=== PATIENT | male | born 1955 | race Caucasian/White ===

== ENCOUNTER → 2016-11-04 | Outpatient (CLI) | payer BC ==
[~2016-11-04] MED LIST: ACET-1256 PO; ASPI-390 PO; FEXO1TAB46 PO; GLUCTAB18 PO; HYDR-5688 PO; LISI-461 PO; MULT-506 PO; MULT-663 PO; ONDA4TAB46 PO; TAMS0.4C38 PO
[2016-11-04 13:18] LABS: BLOOD UREA NITROGEN 23 mg/dl (7-18); BUN/CREATININE RATIO 21.2 (10-20); CALCIUM 8.9 mg/dl (8.5-10.1); CARBON DIOXIDE 32 mmol/L (21-32); CHLORIDE 104 mmol/L (98-107); GLUCOSE 97 mg/dl (70-99); POTASSIUM 4.1 mmol/L (3.5-5.1); SODIUM 140 mmol/L (136-145)
[2016-11-04 13:21] LABS: ESTIMATED AVERAGE GLUCOSE 111 mg/dl; HA1C FLAG Normal (Normal)
[2016-11-04 13:22] LABS: CHOLESTEROL 218 mg/dl (0-200); CHOLESTEROL/HDL RATIO 4.6; HDL CHOLESTEROL 47 mg/dl; TRIGLYCERIDES 187 mg/dl (0-150); VERY LOW DENSITY LIPOPROT CALC 37 mg/dl
--- NOTE | 2016-11-08 11:50 | CODING QUERY MEDICAL NECESSITY ---
SUPPORTING DIAGNOSIS NEEDED Dr. Tea Carrington, A supporting diagnosis is required for the test/procedure performed on this patient in order for us to be reimbursed by the patient's insurance. Please provide a supporting diagnosis for the following test/procedure listed below next to the test name along with your signature. *If there is no additional diagnosis for this patient that would support the following test/procedure please document that below next to the test/procedure. Test(s)/Procedure(s) that require a supporting diagnosis: * [id number] PSA DIAGNOSIS: DATE OF SERVICE: 11/04/16 Provider Signature: Date: Thank you Joshua Tejada [facility] Information Management Once completed, please kindly fax back to [phone] For questions please call [phone]
== END | disposition home or self-care (01) ==
LOC: C.LABSPEC 12:40
PROVIDERS: ATTEND Internal Medicine
DX: R73.9 Hyperglycemia, unspecified (principal); E78.5 Hyperlipidemia, unspecified; I10 Essential (primary) hypertension; R30.0 Dysuria

== ENCOUNTER → 2017-05-12 | Outpatient (CLI) | payer BC ==
[~2017-05-12] MED LIST changes: -HYDR-5688 PO; -ONDA4TAB46 PO
[2017-05-12 14:09] LABS: ALT/SGPT 24 U/L (12-78); BLOOD UREA NITROGEN 19 mg/dl (7-18); BUN/CREATININE RATIO 14.9 (10-20); CALCIUM 8.9 mg/dl (8.5-10.1); CARBON DIOXIDE 27 mmol/L (21-32); CHLORIDE 106 mmol/L (98-107); CHOLESTEROL 205 mg/dl (0-200); CREATININE 1.27 mg/dl (0.60-1.40); GLUCOSE 97 mg/dl (70-99); POTASSIUM 3.8 mmol/L (3.5-5.1); SODIUM 141 mmol/L (136-145); TRIGLYCERIDES 359 mg/dl (0-150); VERY LOW DENSITY LIPOPROT CALC 72 mg/dl
[2017-05-12 14:12] LABS: ALKALINE PHOSPHATASE 92 U/L (45-117); AST/SGOT 18 U/L (15-37); HDL CHOLESTEROL 41 mg/dl
== END | disposition home or self-care (01) ==
LOC: C.LABSPEC 12:34
PROVIDERS: ATTEND Internal Medicine
DX: I10 Essential (primary) hypertension (principal); E78.5 Hyperlipidemia, unspecified

== ENCOUNTER → 2017-10-06 | Outpatient (CLI) | payer OTHER ==
[2017-10-06 18:19] LABS: ALBUMIN 3.5 gm/dl (3.4-5.0); ALT/SGPT 31 U/L (12-78); AST/SGOT 22 U/L (15-37); BLOOD UREA NITROGEN 18 mg/dl (7-18); CALCIUM 8.5 mg/dl (8.5-10.1); CARBON DIOXIDE 24 mmol/L (21-32); CHOLESTEROL 226 mg/dl (0-200); CREATININE 1.13 mg/dl (0.60-1.40); GLUCOSE 96 mg/dl (70-99); POTASSIUM 3.9 mmol/L (3.5-5.1); SODIUM 138 mmol/L (136-145)
[2017-10-06 18:23] LABS: ALKALINE PHOSPHATASE 91 U/L (45-117); LDL CHOLESTEROL (DIRECT) 104 mg/dl
[2017-10-07 08:07] LABS: HEMOGLOBIN A1C 5.5 % (4.5-5.6)
== END | disposition home or self-care (01) ==
LOC: C.LABSPEC 17:17
PROVIDERS: ATTEND Internal Medicine
DX: I10 Essential (primary) hypertension (principal); E78.5 Hyperlipidemia, unspecified; R73.9 Hyperglycemia, unspecified; R30.0 Dysuria

== ENCOUNTER 2018-09-02 16:21 | Inpatient (IN) ==
[2018-09-02 17:05] LABS: Basophils # (auto) 0.02 K/uL (0-0.2); Basophils % (auto) 0.2 %; Eosinophils # (auto) 0.13 K/uL (0-0.5); Eosinophils % (auto) 1.4 %; Hematocrit (blood only) 40.7 % (42-52); Hemoglobin 13.9 g/dL (14.0-18.0); Immature Granulocytes # (auto) 0.02 K/uL (0.00-0.02); Immature Granulocytes % (auto) 0.2 %; Lymphocytes # (auto) 1.13 K/uL (1.2-3.4); Lymphocytes % (auto) 11.8 %; Mean Corpuscular Hgb Conc 34.2 g/dL (32-36); Mean Corpuscular Volume 96.7 fL (80-100); Mean Platelet Volume 10.9 fL (7.4-10.4); Monocytes # (auto) 0.78 K/uL (0.11-0.59); Monocytes % (auto) 8.2 %; Neutrophils # (auto) 7.46 K/uL (1.4-6.5); Neutrophils % (auto) 78.2 %; Platelet Count 203 K/uL (130-400); RDW Coefficient of Variation 13.2 % (11.5-14.5); RDW Standard Deviation 46.7 fL (36.4-46.3); Red Blood Count 4.21 M/uL (4.7-6.1); White Blood Count 9.54 K/uL (4.8-10.8)
--- NOTE | 2018-09-02 17:09 | Emergency Department Note ---
Entered by Evangelista Frank acting as a scribe for Porfirio Shah DO History of Present Illness General Chief complaint: Bleeding Stated complaint: HEMRIOD SURGERY WED,CAN'T STOP BLEEDING Time Seen by Provider: 09/02/18 16:27 Source: patient History of Present Illness Onset (ago): day(s) (last night) Location: buttocks (rectal) Pain Consistency: + other (persistent) Quality: + other (post-operative rectal bleeding) Associated symptoms: + other (takes Xarelto; right flank pain; no bowel movements today) The patient is a 63 year old male who presents to the Emergency Room with complaints of persistent rectal bleeding beginning last night. The patient states that he had hemorrhoid surgery four days ago performed by Dr. Mancera. He reports that he usually takes Xarelto, which he stopped taking seven days ago and started taking again two days ago. He states that there was some occasional spotting from the rectum after his surgery, but last night the pads that he was wearing started to become saturated with blood. He states that he has not had any bowel movements today. He also reports some right flank pain beginning last night. Home Medications Home Medications Medication Instructions Recorded Confirmed Type Move Free Joint Health 1 tab PO DAILY 08/24/18 09/02/18 History calcium citrate-vitamin D3 1 tab PO DAILY 08/24/18 09/02/18 History [Citracal Regular] gemfibrozil 300 tab PO BID 08/24/18 09/02/18 History metoprolol tartrate 37.5 mg PO BID 08/24/18 09/02/18 History multivitamin [Multiple Vitamins] 1 tab PO DAILY 08/24/18 09/02/18 History rizatriptan [Maxalt] 10 mg PO DAILY PRN 09/02/18 09/02/18 History oxycodone-acetaminophen [Percocet] 1 - 2 tab PO Q4H PRN #20 tab 09/03/18 Rx Allergies Allergy/AdvReac Type Severity Reaction Status Date / Time pollen extracts Allergy Unknown SNEEZING, Verified 09/02/18 16:40 RUNNY NOSE Dust Allergy Unknown SNEEZING, Uncoded 09/02/18 16:40 RUNNY NOSE Past Med/Surg History Medical History Afib DIAGNOSED 04/2018- ON XARELTO History of kidney stones Hyperlipidemia Hypertension Surgical History History of arthroscopy of right shoulder History of colonoscopy History of hemorrhoidectomy Family History Other Heart disease Hypertension Social History Preferred Language: Hungarian Beliefs That Will Affect Care: None Current Living Situation: Spouse Feels Safe at Home: Yes Safety Concerns: Feels Safe At This Time Smoking Status: Never smoker Hx Alcohol Use: Yes Hx Substance Use: No Review of Systems See HPI for pertinent positives & negatives. and A total of 10 systems reviewed and were otherwise negative Physical Exam Vital Signs Vital Signs - 24 hr 09/02/18 19:23 09/02/18 21:33 09/03/18 00:22 Temperature 37 C 36.9 C Temperature Source Oral Oral Pulse Rate Pulse Rate [Left Brachial] 96 H Pulse Rate [Left Finger] 75 Pulse Rate [Right Finger] 100 H Pulse Rhythm [Right Finger] Regular Pulse Strength [Right Finger] Normal Respiratory Rate 16 20 Respiratory Effort / Characteristics Non-Labored Spontaneous Respiratory Depth Normal Respiratory Pattern Regular Blood Pressure [Left Arm] 130/85 125/78 Blood Pressure [Right Arm] 139/95 Blood Pressure Mean [Left Arm] 100 93 Blood Pressure Mean [Right Arm] 109 Blood Pressure Position [Left Arm] Lying Blood Pressure Position [Right Arm] Lying Pulse Oximetry 95 95 Oxygen Delivery Method Room Air Room Air 09/03/18 05:11 09/03/18 07:25 09/03/18 07:32 Temperature 37.0 C 36.6 C Temperature Source Oral Oral Pulse Rate 71 Pulse Rate [Left Brachial] Pulse Rate [Left Finger] 79 78 Pulse Rate [Right Finger] Pulse Rhythm [Right Finger] Pulse Strength [Right Finger] Respiratory Rate 20 20 Respiratory Effort / Characteristics Respiratory Depth Respiratory Pattern Blood Pressure [Left Arm] 103/68 120/69 Blood Pressure [Right Arm] Blood Pressure Mean [Left Arm] 79 86 Blood Pressure Mean [Right Arm] Blood Pressure Position [Left Arm] Lying Blood Pressure Position [Right Arm] Pulse Oximetry 95 92 Oxygen Delivery Method Room Air Room Air 09/03/18 11:48 09/03/18 15:00 09/03/18 15:27 Temperature 37.2 C 36.9 C Temperature Source Oral Oral Pulse Rate 81 Pulse Rate [Left Brachial] Pulse Rate [Left Finger] 57 L 79 Pulse Rate [Right Finger] Pulse Rhythm [Right Finger] Pulse Strength [Right Finger] Respiratory Rate 18 18 Respiratory Effort / Characteristics Respiratory Depth Respiratory Pattern Blood Pressure [Left Arm] 110/69 118/72 Blood Pressure [Right Arm] Blood Pressure Mean [Left Arm] 82 87 Blood Pressure Mean [Right Arm] Blood Pressure Position [Left Arm] Lying Lying Blood Pressure Position [Right Arm] Pulse Oximetry 95 92 Oxygen Delivery Method Room Air Room Air 09/03/18 17:16 Temperature 36.9 C Temperature Source Pulse Rate Pulse Rate [Left Brachial] 96 H Pulse Rate [Left Finger] 79 Pulse Rate [Right Finger] 100 H Pulse Rhythm [Right Finger] Pulse Strength [Right Finger] Respiratory Rate 18 Respiratory Effort / Characteristics Respiratory Depth Respiratory Pattern Blood Pressure [Left Arm] 118/72 Blood Pressure [Right Arm] 139/95 Blood Pressure Mean [Left Arm] Blood Pressure Mean [Right Arm] Blood Pressure Position [Left Arm] Blood Pressure Position [Right Arm] Pulse Oximetry 92 Oxygen Delivery Method GENERAL: Patient is awake alert in no acute distress patient is resting comfortably and showing no signs of anxiety EYES: The conjunctivae are clear. The pupils are round and reactive. EARS, NOSE, MOUTH AND THROAT: The nose is without any evidence of any deformity. Mucous membranes are moist tongue is midline NECK: The neck is nontender and supple. RESPIRATORY: Normal respiratory effort is noted there is no evidence of wheezing rhonchi or rales CARDIOVASCULAR: Regular rate and rhythm noted there no murmurs rubs or gallops normal S1 normal S2 GASTROINTESTINAL: The abdomen is soft. Bowel sounds are present in all quadrants. Abdomen is nontender. Rectal exam revealed postoperative site which had fresh clot noted as well as oozing in the anal verge. Patient was very tender in this area. MUSCULOSKELETAL/EXTREMITIES: There is no evidence of gross deformity full range of motion is noted in the hips and shoulders SKIN: There is no obvious evidence of any rash. There are no petechiae, pallor or cyanosis noted. NEUROLOGIC: Patient is awake alert and oriented x3. Course 1635: Past medical records reviewed. The patient was evaluated in room C4, and a complete history and physical examination were performed. 1757: I consulted Dr. Esposito General Surgery. 1800: I updated the patient on current results. 1830: I discussed the patient's case with María Elena Matthews PA-C: [facility] Hospitalist. 1836: I spoke to Dr. Esposito, who is evaluating the patient with a consult to Dr. Dacosta - [facility] Hospitalist. Consultations Consultation #1: I consulted Dr. Esposito General Surgery. Time: 17:57 Consultation #2: I discussed the patient's case with María Elena Matthews PA-C: [facility] Hospitalist. Time: 18:30 Consultation #3: I spoke to Dr. Esposito, who is evaluating the patient with a consult to Dr. Dacosta - [facility] Hospitalist. Time: 18:36 Administered Medications Discontinued Medications Hydrocodone Bitart/Acetaminophen ([place] 5/325) 1 tab PO 3XDQ4 PRN PRN Reason: Pain Stop: 09/16/18 19:33 Last Admin: 09/03/18 05:23 Dose: 1 tab Documented by: [id number] Admin: 09/02/18 22:52 Dose: 1 tab Documented by: [id number] Hydrocodone Bitart/Acetaminophen ([place] 5/325) 2 tab PO 3XDQ4 PRN PRN Reason: Pain Stop: 09/16/18 19:33 Last Admin: 09/03/18 10:37 Dose: 2 tab Documented by: [id number] Hydrocodone Bitart/Acetaminophen ([place] 5/325) 2 tab PO Q4H PRN PRN Reason: Pain Stop: 09/17/18 13:49 Last Admin: 09/03/18 15:46 Dose: 2 tab Documented by: [id number] Gemfibrozil (Lopid) 300 mg PO BID JIMBO Stop: 10/02/18 20:59 Last Admin: 09/03/18 08:10 Dose: 300 mg Documented by: [id number] Admin: 09/02/18 21:32 Dose: Not Given Documented by: [id number] Tranexamic Acid 1,000 mg/ (Sodium Chloride) 110 mls @ 0 mls/hr TOP ONE ONE Stop: 09/03/18 18:00 Last Admin: 09/02/18 17:21 Dose: 110 mls/hr Documented by: [id number] Tranexamic Acid 1,000 mg/ (Sodium Chloride) 110 mls @ 0 mls/hr TOP ONE ONE Stop: 09/03/18 05:16 Last Infusion: 09/03/18 05:39 Dose: 0 mls/hr Documented by: [id number] Admin: 09/03/18 05:32 Dose: 999 mls/hr Documented by: [id number] Metoprolol Tartrate (Lopressor) 37.5 mg PO BID JIMBO Stop: 10/02/18 20:59 Last Admin: 09/03/18 08:10 Dose: 37.5 mg Documented by: [id number] Admin: 09/02/18 21:34 Dose: 37.5 mg Documented by: [id number] Medical Decision Making Differential Diagnosis Differential diagnosis: Etiologies such as esophagitis, variceal bleed, [place] tear, gastritis, peptic ulcer disease, AVM, inflammatory bowel disease, ischemia, diverticulosis, colitis, malignancy, coagulopathy, thrombocytopenia, fissure, hemorrhoid, epistaxis , as well as others were entertained. Medical Records Attestation: I reviewed the patient's medical records. Home Medications Current Medication List: was personally reviewed by me Laboratory Data Attestation: I reviewed the patient's lab results. Result diagrams: 09/03/18 05:56 09/03/18 05:55 Lab Results 09/02/18 09/02/18 09/02/18 Range/Units 16:49 16:49 16:49 WBC 9.54 (4.8-10.8) K/uL RBC 4.21 L (4.7-6.1) M/uL Hgb 13.9 L (14.0-18.0) g/dL POC Hgb (14.0-18.0) g/dl Hct 40.7 L (42-52) % POC Hct (42-52) % MCV 96.7 (80-100) fL MCH 33.0 (25-34) pg MCHC 34.2 (32-36) g/dL RDW Std Deviation 46.7 H (36.4-46.3) fL RDW Coeff of Chiquita 13.2 (11.5-14.5) % Plt Count 203 (130-400) K/uL MPV 10.9 H (7.4-10.4) fL Immature Gran % (Auto) 0.2 % Neut % (Auto) 78.2 % Lymph % (Auto) 11.8 % [place] % (Auto) 8.2 % Eos % (Auto) 1.4 % Baso % (Auto) 0.2 % Immature Gran # (Auto) 0.02 (0.00-0.02) K/uL Neut # (Auto) 7.46 H (1.4-6.5) K/uL Lymph # (Auto) 1.13 L (1.2-3.4) K/uL [place] # (Auto) 0.78 H (0.11-0.59) K/uL Eos # (Auto) 0.13 (0-0.5) K/uL Baso # (Auto) 0.02 (0-0.2) K/uL PT 11.4 (9.0-12.0) Seconds INR 1.1 (0.9-1.1) APTT 31.0 (21.0-31.0) Seconds PTT Ratio 1.1 POC Sodium (135-144) mEq/L Sodium 137 (136-145) mmol/L POC Potassium (3.3-5.0) mEq/L Potassium 3.9 (3.5-5.1) mmol/L POC Chloride (101-112) mEq/L Chloride 103 (98-107) mmol/L Carbon Dioxide 27 (21-32) mmol/L POC Total CO2 (24-31) mEq/l Anion Gap 7.0 (3-11) POC Anion Gap (16-25) mmol/L POC BUN (7-18) mg/dl BUN 19 H (7-18) mg/dl Creatinine 1.30 (0.6-1.4) mg/dl POC Creatinine (0.6-1.3) mg/dl Est Cr Clr Drug Dosing 66.4 ml/min Est GFR ( Amer) 66.8 Est GFR (Non-Af Amer) 57.7 BUN/Creatinine Ratio 14.5 (10-20) Glucose 145 H (70-99) mg/dl POC Glucose (other) (70-99) mg/dl Calcium 8.5 (8.5-10.1) mg/dl POC Ioniz Calcium Niranjan (1.12-1.32) mmol/l Phosphorus (2.5-4.9) mg/dl Total Bilirubin 0.6 (0.2-1) mg/dl AST 13 L (15-37) U/L ALT 15 (12-78) U/L Alkaline Phosphatase 97 (45-117) U/L Total Protein 7.7 (6.4-8.2) gm/dl Albumin 3.1 L (3.4-5.0) gm/dl Globulin 4.6 H (2.5-4.0) gm/dl Albumin/Globulin Ratio 0.7 L (0.9-2) Lipase 84 (73-393) U/L Urine Color Urine Appearance (Clear) Urine pH (4.5-7.5) Ur Specific [place] (1.000-1.030) Urine Protein (Negative) Urine Glucose (UA) (Negative) Urine Ketones (Negative) Urine Blood (Negative) Urine Nitrite (Negative) Urine Bilirubin (Negative) Urine Urobilinogen (Negative) Ur Leukocyte Esterase (Negative) Hepatitis C Ab Screen (Neg) Blood Type Antibody Screen 09/02/18 09/02/18 09/02/18 Range/Units 16:52 16:59 19:59 WBC 9.21 (4.8-10.8) K/uL RBC 4.03 L (4.7-6.1) M/uL Hgb 13.5 L (14.0-18.0) g/dL POC Hgb 13.6 L (14.0-18.0) g/dl Hct 39.5 L (42-52) % POC Hct 40 L (42-52) % MCV 98.0 (80-100) fL MCH 33.5 (25-34) pg MCHC 34.2 (32-36) g/dL RDW Std Deviation 47.8 H (36.4-46.3) fL RDW Coeff of Chiquita 13.2 (11.5-14.5) % Plt Count 194 (130-400) K/uL MPV 10.6 H (7.4-10.4) fL Immature Gran % (Auto) 0.2 % Neut % (Auto) 71.4 % Lymph % (Auto) 18.3 % [place] % (Auto) 7.9 % Eos % (Auto) 2.0 % Baso % (Auto) 0.2 % Immature Gran # (Auto) 0.02 (0.00-0.02) K/uL Neut # (Auto) 6.57 H (1.4-6.5) K/uL Lymph # (Auto) 1.69 (1.2-3.4) K/uL [place] # (Auto) 0.73 H (0.11-0.59) K/uL Eos # (Auto) 0.18 (0-0.5) K/uL Baso # (Auto) 0.02 (0-0.2) K/uL PT (9.0-12.0) Seconds INR (0.9-1.1) APTT (21.0-31.0) Seconds PTT Ratio POC Sodium 137 (135-144) mEq/L Sodium (136-145) mmol/L POC Potassium 4.7 (3.3-5.0) mEq/L Potassium (3.5-5.1) mmol/L POC Chloride 102 (101-112) mEq/L Chloride (98-107) mmol/L Carbon Dioxide (21-32) mmol/L POC Total CO2 27 (24-31) mEq/l Anion Gap (3-11) POC Anion Gap 13.0 L (16-25) mmol/L POC BUN 23 H (7-18) mg/dl BUN (7-18) mg/dl Creatinine (0.6-1.4) mg/dl POC Creatinine 1.1 (0.6-1.3) mg/dl Est Cr Clr Drug Dosing ml/min Est GFR ( Amer) Est GFR (Non-Af Amer) BUN/Creatinine Ratio (10-20) Glucose (70-99) mg/dl POC Glucose (other) 145 H (70-99) mg/dl Calcium (8.5-10.1) mg/dl POC Ioniz Calcium Niranjan 1.06 L (1.12-1.32) mmol/l Phosphorus (2.5-4.9) mg/dl Total Bilirubin (0.2-1) mg/dl AST (15-37) U/L ALT (12-78) U/L Alkaline Phosphatase (45-117) U/L Total Protein (6.4-8.2) gm/dl Albumin (3.4-5.0) gm/dl Globulin (2.5-4.0) gm/dl Albumin/Globulin Ratio (0.9-2) Lipase (73-393) U/L Urine Color Urine Appearance (Clear) Urine pH (4.5-7.5) Ur Specific [place] (1.000-1.030) Urine Protein (Negative) Urine Glucose (UA) (Negative) Urine Ketones (Negative) Urine Blood (Negative) Urine Nitrite (Negative) Urine Bilirubin (Negative) Urine Urobilinogen (Negative) Ur Leukocyte Esterase (Negative) Hepatitis C Ab Screen (Neg) Blood Type O Positive Antibody Screen NEGATIVE 09/02/18 09/03/18 09/03/18 Range/Units 19:59 00:50 05:55 WBC (4.8-10.8) K/uL RBC (4.7-6.1) M/uL Hgb (14.0-18.0) g/dL POC Hgb (14.0-18.0) g/dl Hct (42-52) % POC Hct (42-52) % MCV (80-100) fL MCH (25-34) pg MCHC (32-36) g/dL RDW Std Deviation (36.4-46.3) fL RDW Coeff of Chiquita (11.5-14.5) % Plt Count (130-400) K/uL MPV (7.4-10.4) fL Immature Gran % (Auto) % Neut % (Auto) % Lymph % (Auto) % [place] % (Auto) % Eos % (Auto) % Baso % (Auto) % Immature Gran # (Auto) (0.00-0.02) K/uL Neut # (Auto) (1.4-6.5) K/uL Lymph # (Auto) (1.2-3.4) K/uL [place] # (Auto) (0.11-0.59) K/uL Eos # (Auto) (0-0.5) K/uL Baso # (Auto) (0-0.2) K/uL PT (9.0-12.0) Seconds INR (0.9-1.1) APTT (21.0-31.0) Seconds PTT Ratio POC Sodium (135-144) mEq/L Sodium 138 (136-145) mmol/L POC Potassium (3.3-5.0) mEq/L Potassium 4.0 (3.5-5.1) mmol/L POC Chloride (101-112) mEq/L Chloride 101 (98-107) mmol/L Carbon Dioxide 28 (21-32) mmol/L POC Total CO2 (24-31) mEq/l Anion Gap 9.0 (3-11) POC Anion Gap (16-25) mmol/L POC BUN (7-18) mg/dl BUN 13 (7-18) mg/dl Creatinine 1.06 (0.6-1.4) mg/dl POC Creatinine (0.6-1.3) mg/dl Est Cr Clr Drug Dosing 79.4 ml/min Est GFR ( Amer) 85.5 Est GFR (Non-Af Amer) 73.8 BUN/Creatinine Ratio 12.4 (10-20) Glucose 103 H (70-99) mg/dl POC Glucose (other) (70-99) mg/dl Calcium 8.8 (8.5-10.1) mg/dl POC Ioniz Calcium Niranjan (1.12-1.32) mmol/l Phosphorus 3.6 (2.5-4.9) mg/dl Total Bilirubin 0.6 (0.2-1) mg/dl AST 14 L (15-37) U/L ALT 15 (12-78) U/L Alkaline Phosphatase 89 (45-117) U/L Total Protein 7.1 (6.4-8.2) gm/dl Albumin 2.8 L (3.4-5.0) gm/dl Globulin 4.3 H (2.5-4.0) gm/dl Albumin/Globulin Ratio 0.6 L (0.9-2) Lipase (73-393) U/L Urine Color Yellow Urine Appearance Clear (Clear) Urine pH 5.0 (4.5-7.5) Ur Specific [place] 1.022 (1.000-1.030) Urine Protein Negative (Negative) Urine Glucose (UA) Negative (Negative) Urine Ketones Negative (Negative) Urine Blood Negative (Negative) Urine Nitrite Negative (Negative) Urine Bilirubin Negative (Negative) Urine Urobilinogen Negative (Negative) Ur Leukocyte Esterase Negative (Negative) Hepatitis C Ab Screen Neg (Neg) Blood Type Antibody Screen 09/03/18 Range/Units 05:56 WBC 9.34 (4.8-10.8) K/uL RBC 3.90 L (4.7-6.1) M/uL Hgb 12.8 L (14.0-18.0) g/dL POC Hgb (14.0-18.0) g/dl Hct 38.4 L (42-52) % POC Hct (42-52) % MCV 98.5 (80-100) fL MCH 32.8 (25-34) pg MCHC 33.3 (32-36) g/dL RDW Std Deviation 47.6 H (36.4-46.3) fL RDW Coeff of Chiquita 13.3 (11.5-14.5) % Plt Count 199 (130-400) K/uL MPV 11.0 H (7.4-10.4) fL Immature Gran % (Auto) % Neut % (Auto) % Lymph % (Auto) % [place] % (Auto) % Eos % (Auto) % Baso % (Auto) % Immature Gran # (Auto) (0.00-0.02) K/uL Neut # (Auto) (1.4-6.5) K/uL Lymph # (Auto) (1.2-3.4) K/uL [place] # (Auto) (0.11-0.59) K/uL Eos # (Auto) (0-0.5) K/uL Baso # (Auto) (0-0.2) K/uL PT (9.0-12.0) Seconds INR (0.9-1.1) APTT (21.0-31.0) Seconds PTT Ratio POC Sodium (135-144) mEq/L Sodium (136-145) mmol/L POC Potassium (3.3-5.0) mEq/L Potassium (3.5-5.1) mmol/L POC Chloride (101-112) mEq/L Chloride (98-107) mmol/L Carbon Dioxide (21-32) mmol/L POC Total CO2 (24-31) mEq/l Anion Gap (3-11) POC Anion Gap (16-25) mmol/L POC BUN (7-18) mg/dl BUN (7-18) mg/dl Creatinine (0.6-1.4) mg/dl POC Creatinine (0.6-1.3) mg/dl Est Cr Clr Drug Dosing ml/min Est GFR ( Amer) Est GFR (Non-Af Amer) BUN/Creatinine Ratio (10-20) Glucose (70-99) mg/dl POC Glucose (other) (70-99) mg/dl Calcium (8.5-10.1) mg/dl POC Ioniz Calcium Niranjan (1.12-1.32) mmol/l Phosphorus (2.5-4.9) mg/dl Total Bilirubin (0.2-1) mg/dl AST (15-37) U/L ALT (12-78) U/L Alkaline Phosphatase (45-117) U/L Total Protein (6.4-8.2) gm/dl Albumin (3.4-5.0) gm/dl Globulin (2.5-4.0) gm/dl Albumin/Globulin Ratio (0.9-2) Lipase (73-393) U/L Urine Color Urine Appearance (Clear) Urine pH (4.5-7.5) Ur Specific [place] (1.000-1.030) Urine Protein (Negative) Urine Glucose (UA) (Negative) Urine Ketones (Negative) Urine Blood (Negative) Urine Nitrite (Negative) Urine Bilirubin (Negative) Urine Urobilinogen (Negative) Ur Leukocyte Esterase (Negative) Hepatitis C Ab Screen (Neg) Blood Type Antibody Screen Blood Pressure Blood Pressure Findings: Normal blood pressure Blood Pressure Disposition: did not require urgent referral MDM Narrative The patient is a 63-year-old male who presented to the emergency department for an evaluation of rectal bleeding. The patient had recent surgery and restarted his blood thinners 2 days after the surgery. He presents today with significant bleeding in the postoperative site where he had multiple hemorrhoids removed. The patient was treated with pressure directly as well as TXA topically to the area of bleeding. This seems to have improved the patient's bleeding significantly. I discussed the patient's laboratory studies with him. I also discussed his case with the on-call general surgeon as well as the on-call [facility] hospitalist group. They have agreed to evaluate the patient in the emergency department for further management and disposition. Given the patient's use of blood thinners I feel that he may be at risk for worsening bleeding. Impression & Plan Post-op bleeding, Current use of longwall foreman anticoagulation Discharge Plan Visit Data *Final* Discharge Date/Time: 09/02/18 19:17 Chief Complaint: Bleeding Stated Complaint: HEMRIOD SURGERY WED,CAN'T STOP BLEEDING ED Provider: Porfirio Shah Discharge Problem: Post-op bleeding, Current use of longwall foreman anticoagulation Patient Disposition: Admitted As Inpatient Discharge Instructions Interventions: ED Discharge Assessment Last Done: 09/02/18 19:17 Discharge Problem: Post-op bleeding Qualifiers: Surgical complication system/body Area: digestive system Procedure type: digestive system Qualified Code(s): K91.840 - Postprocedural hemorrhage of a digestive system organ or structure following a digestive system procedure The scribe's documentation has been prepared under my direction and personally reviewed by me in its entirety. I confirm that the note above accurately reflects all work, treatment, procedures, and medical decision making performed by me.
[2018-09-02 17:12] LABS: iSTAT Creatinine 1.1 mg/dl (0.6-1.3); iSTAT Hemoglobin 13.6 g/dl (14.0-18.0); iSTAT Ionized Calcium 1.06 mmol/l (1.12-1.32); iSTAT Potassium 4.7 mEq/L (3.3-5.0)
[2018-09-02 17:22] LABS: Albumin Level 3.1 gm/dl (3.4-5.0); BUN Creatinine Ratio 14.5 (10-20); Calcium 8.5 mg/dl (8.5-10.1); Creatinine Clr Calc Pharmacy 66.4 ml/min; Est GFR (African American) 66.8; Est GFR (Non-African American) 57.7; Potassium 3.9 mmol/L (3.5-5.1)
[2018-09-02 17:24] LABS: Albumin Globulin Ratio 0.7 (0.9-2); Bilirubin,Total 0.6 mg/dl (0.2-1); Globulin 4.6 gm/dl (2.5-4.0); Total Protein 7.7 gm/dl (6.4-8.2)
[2018-09-02 17:30] LABS: INR 1.1 (0.9-1.1); Partial Thromboplastin Ratio 1.1; Prothrombin Time 11.4 Seconds (9.0-12.0)
--- NOTE | 2018-09-02 18:57 | History & Physical Report ---
Date of Service September 02, 2018 Assessment & Plan (1) Post-op bleeding: adm to M/S tele with h/o bleeding from hemorrhoidectomy site seems to be stopped- hold Xarelto- may need other anticoagulant for 1-2 weeks,then back to Xarelto. OR if has significant bleeding ask med team to follow Procedure type: digestive system Surgical complication system/body Area: digestive system Qualified Code(s): K91.840 - Postprocedural hemorrhage of a digestive system organ or structure following a digestive system procedure History of Present Illness Primary Care Provider: Jacob Singh MD recent hemorrhoidectomy- 4 days ago- began Xarelto 2 days ago last dose last pm- began with rectal bleeding this am [facility]- Dr Shah placed Transaxamic pad he saw clot- no active bleeding Dr Small told me Xarelto should be out of his system (mostly) h/o afib Allergies Allergy/AdvReac Type Severity Reaction Status Date / Time pollen extracts Allergy Unknown SNEEZING, Verified 09/02/18 16:40 RUNNY NOSE Dust Allergy Unknown SNEEZING, Uncoded 09/02/18 16:40 RUNNY NOSE Home Medications Home Medications Medication Instructions Recorded Confirmed Type Move Free Joint Health 1 tab PO DAILY 08/24/18 09/02/18 History Xarelto 20 mg PO PM 08/24/18 09/02/18 History calcium citrate-vitamin D3 1 tab PO DAILY 08/24/18 09/02/18 History [Citracal Regular] gemfibrozil 300 tab PO BID 08/24/18 09/02/18 History metoprolol tartrate 37.5 mg PO BID 08/24/18 09/02/18 History multivitamin [Multiple Vitamins] 1 tab PO DAILY 08/24/18 09/02/18 History rizatriptan [Maxalt] 10 mg PO DAILY PRN 09/02/18 09/02/18 History Past Med/Surg History Medical History Afib DIAGNOSED 04/2018- ON XARELTO History of kidney stones Hyperlipidemia Hypertension Surgical History History of arthroscopy of right shoulder History of colonoscopy History of hemorrhoidectomy Family History Other Heart disease Hypertension Social History Feels Safe at Home: Yes Smoking Status: Never smoker Physical Exam Vital Signs (Past 24 Hours): Last Vital Signs Temp 36.6 C 09/02/18 16:23 Pulse 102 H 09/02/18 17:30 Resp 14 09/02/18 17:30 BP 114/64 09/02/18 17:30 Pulse Ox 94 09/02/18 17:30 currently no active bleeding- min blood on pad has post ext hemorrhoidsite with old dark clot Constitutional: well developed; no acute distress Respiratory: normal respiratory effort; no respiratory distress Cardiovascular: afib Skin: no rashes, warm and dry Psychiatric: Orientation: alert Results & Data Medications Administered Tranexamic Acid 1,000 mg/ (Sodium Chloride) 110 mls @ 0 mls/hr TOP ONE ONE Stop: 09/03/18 18:00 Last Admin: 09/02/18 17:21 Dose: 110 mls/hr Documented by: [id number]
[2018-09-02] MEDS ORDERED: HYDROCODONE/ACETAMOPHEN 5/325MG TAB PO PRN (19:34)
[2018-09-02] MEDS ORDERED: PROMETHAZINE HCL 12.5 MG in SODIUM CHLORIDE 0.9% 50 ML IV PRN (19:34)
[2018-09-02] MEDS ORDERED: ONDANSETRON INJ 2 MG/ML 2 ML VIAL IV PRN (19:34)
[2018-09-02] MEDS ORDERED: RIZATRIPTAN BENZOATE 10 MG TAB PO PRN (19:34)
[2018-09-02 20:10] LABS: Basophils # (auto) 0.02 K/uL (0-0.2); Basophils % (auto) 0.2 %; Eosinophils # (auto) 0.18 K/uL (0-0.5); Hematocrit (blood only) 39.5 % (42-52); Hemoglobin 13.5 g/dL (14.0-18.0); Immature Granulocytes # (auto) 0.02 K/uL (0.00-0.02); Immature Granulocytes % (auto) 0.2 %; Lymphocytes # (auto) 1.69 K/uL (1.2-3.4); Lymphocytes % (auto) 18.3 %; Mean Platelet Volume 10.6 fL (7.4-10.4); Monocytes # (auto) 0.73 K/uL (0.11-0.59); Monocytes % (auto) 7.9 %; Neutrophils # (auto) 6.57 K/uL (1.4-6.5); Neutrophils % (auto) 71.4 %; Platelet Count 194 K/uL (130-400); RDW Coefficient of Variation 13.2 % (11.5-14.5); RDW Standard Deviation 47.8 fL (36.4-46.3); Red Blood Count 4.03 M/uL (4.7-6.1); White Blood Count 9.21 K/uL (4.8-10.8)
[2018-09-02 20:12] LABS: Mean Corpuscular Hgb Conc 34.2 g/dL (32-36)
--- NOTE | 2018-09-02 20:56 | Consultation ---
Date of Consultation September 02, 2018 Assessment & Plan (1) Post-op bleedin63 y/o M Hx chronic AF, HLD, migraines. Pt underwent hemorrhoidectomy 08/29. He normally takes Xarelto and reintroduced the medication a day earlier. He developed a lower rectal bleeding after doing so and presented for evaluation. He was admitted by the surgical service who packed the area and apparently achieved homeostasis. He has some rectal pain which is mild and otherwise does not describe any complaints. 1) BRBPR - attended to by surgery. Area packed for homeostasis. Pt will be observed overnight. Analgesics provided. IVF, clear liquids. 2) AF - cont Metoprolol - Xarelto should be held for a few more days 3) HLD - can hold Gemfibrozil until diet is reintroduced Total time for this consult including review of labs, meds, records, surgery note - discussion with pt and admitting ER attending - 33 min Present on Admission?: Yes History of Present Illness Reason for Consultation: Rectal bleeding, AF - Xarelto use Requesting Physician: Vaibhav Attending Physician: Javed Esposito MD, [facility] History of Present Illness 63 y/o M Hx chronic AF, HLD, migraines. Pt underwent hemorrhoidectomy 08/29. He normally takes Xarelto and reintroduced the medication a day earlier. He developed a lower rectal bleeding after doing so and presented for evaluation. He was admitted by the surgical service who packed the area and apparently ac hieved homeostasis. He has some rectal pain which is mild and otherwise does not describe any complaints. PMH: 1) AF - chronic - Xarelto 2) Hemorrhoids 3) Migraine headaches 4) HLD Surgical: Hemorrhoidectomy 08/29/17 Social: Drinks a six pack weekly Family: Father with AF Allergies Allergy/AdvReac Type Severity Reaction Status Date / Time pollen extracts Allergy Unknown SNEEZING, Verified 09/02/18 16:40 RUNNY NOSE Dust Allergy Unknown SNEEZING, Uncoded 09/02/18 16:40 RUNNY NOSE Home Medications Home Medications Medication Instructions Recorded Confirmed Type Move Free Joint Health 1 tab PO DAILY 08/24/18 09/02/18 History Xarelto 20 mg PO PM 08/24/18 09/02/18 History calcium citrate-vitamin D3 1 tab PO DAILY 08/24/18 09/02/18 History [Citracal Regular] gemfibrozil 300 tab PO BID 08/24/18 09/02/18 History metoprolol tartrate 37.5 mg PO BID 08/24/18 09/02/18 History multivitamin [Multiple Vitamins] 1 tab PO DAILY 08/24/18 09/02/18 History rizatriptan [Maxalt] 10 mg PO DAILY PRN 09/02/18 09/02/18 History Patient History Medical History Afib DIAGNOSED 04/2018- ON XARELTO History of kidney stones Hyperlipidemia Hypertension Surgical History History of arthroscopy of right shoulder History of colonoscopy History of hemorrhoidectomy Family History Other Heart disease Hypertension Social History Preferred Language: Malaysian Communication Ability: Effective 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 Beliefs That Will Affect Care: None Current Living Situation: Spouse Feels Safe at Home: Yes Safety Concerns: Feels Safe At This Time Smoking Status: Never smoker Hx Alcohol Use: Yes Hx Substance Use: No Review of Systems Gen: Denies fevers, night sweats, rigors, fatigue, malaise, weight loss/gain ENT: Denies congestion, throat pain, hearing loss Eyes: Denies acute visual changes CV: Denies CP, palpitations Pulmonary: Denies SOB, cough, wheezing GI: Denies N/V, diarrhea, constipation + rectal pain and BRBPR Neuro: Denies acute or unilateral weakness, acute gait impairment, headache or acute visual changes Musculoskeletal: Denies joint pain, inflammation Endocrine: Denies polydipsia, polyuria Skin: Denies acute rashes or ulcers Physical Exam Vital Signs (Past 24 Hours): Last Vital Signs Temp 37 C 09/02/18 19:23 Pulse 100 H 09/02/18 19:23 Resp 16 09/02/18 19:23 BP 139/95 09/02/18 19:23 Pulse Ox 95 09/02/18 19:23 Physical Exam: General: AAO x 3, no distress ENT: No erythema or exudates, no thrush Eyes: MIKAELA, EOMI Head and neck: Normocephalic, atraumatic, No JVD, neck is supple. Chest/heart: Nontender, S1,2, irr, no murmurs, no gallops Lungs: CTAB, no wheezing or crackles Abdomen: Nontender, nondistended, BS+ Neuro: AAO x 3, speech is clear, no unilateral weakness or loss of sensation, coordination intact Musculoskeletal: No joint inflammation, muscle tenderness, FROM Skin: No acute rashes or ulcers Extremities: No clubbing, cyanosis, edema (1) Post-op bleeding Procedure type: digestive system Surgical complication system/body Area: digestive system Qualified Code(s): K91.840 - Postprocedural hemorrhage of a digestive system organ or structure following a digestive system procedure
[2018-09-02] MEDS: GEMFIBROZIL 600 MG TAB PO SCH (21:32)
[2018-09-02] MEDS: METOPROLOL TARTRATE 25 MG TAB PO SCH (21:34)
[2018-09-02] MEDS: HYDROCODONE/ACETAMOPHEN 5/325MG TAB PO PRN (22:52)
[2018-09-03 01:04] LABS: Appearance Urine Clear (Clear); Bilirubin Urine Negative (Negative); Blood Urine Negative (Negative); Color Urine Yellow; Glucose Urine UA Negative (Negative); Ketones Urine Negative (Negative); Leukocyte Esterase Urine Negative (Negative); Nitrite Urine Negative (Negative); Protein Urine Negative (Negative); Specific Gravity Urine 1.022 (1.000-1.030); Urobilinogen Urine Negative (Negative)
[2018-09-03] MEDS ORDERED: TRANEXAMIC ACID 1,000 MG in 0.9 % SODIUM CHLORIDE 100 ML TOP ONE ×2 (05:15→16:42)
[2018-09-03] MEDS: HYDROCODONE/ACETAMOPHEN 5/325MG TAB PO PRN (05:23)
--- NOTE | 2018-09-03 06:08 | Progress Note ---
Date of Service September 03, 2018 Assessment & Plan (1) Post-op bleeding: monitor for bleeding, adv diet discuss with Dr Mancera and med team plan for anticoagulant Procedure type: digestive system Surgical complication system/body Area: digestive system Qualified Code(s): K91.840 - Postprocedural hemorrhage of a digestive system organ or structure following a digestive system procedure Subjective no bleeding overnight feeling better Physical Exam Vital Signs (Past 24 Hours): Last Vital Signs Temp 37.0 C 09/03/18 05:11 Pulse 79 09/03/18 05:11 Resp 20 09/03/18 05:11 BP 103/68 09/03/18 05:11 Pulse Ox 95 09/03/18 05:11 no active bleeding from hemorrhoidectomy sites
[2018-09-03 06:37] LABS: Albumin Level 2.8 gm/dl (3.4-5.0); BUN Creatinine Ratio 12.4 (10-20); Calcium 8.8 mg/dl (8.5-10.1); Creatinine Clr Calc Pharmacy 79.4 ml/min; Est GFR (African American) 85.5; Est GFR (Non-African American) 73.8
[2018-09-03 06:40] LABS: Albumin Globulin Ratio 0.6 (0.9-2); Bilirubin,Total 0.6 mg/dl (0.2-1); Globulin 4.3 gm/dl (2.5-4.0); Phosphorus 3.6 mg/dl (2.5-4.9); Total Protein 7.1 gm/dl (6.4-8.2)
[2018-09-03] MEDS: METOPROLOL TARTRATE 25 MG TAB PO SCH (08:10)
[2018-09-03] MEDS: GEMFIBROZIL 600 MG TAB PO SCH (08:10)
[2018-09-03 09:00] LABS: Hematocrit (blood only) 38.4 % (42-52); Hemoglobin 12.8 g/dL (14.0-18.0); Mean Corpuscular Hgb Conc 33.3 g/dL (32-36); Mean Corpuscular Volume 98.5 fL (80-100); Platelet Count 199 K/uL (130-400); RDW Coefficient of Variation 13.3 % (11.5-14.5); RDW Standard Deviation 47.6 fL (36.4-46.3); White Blood Count 9.34 K/uL (4.8-10.8)
[2018-09-03] MEDS ORDERED: HYDROCODONE/ACETAMOPHEN 5/325MG TAB PO PRN (13:50)
--- NOTE | 2018-09-03 14:14 | Hospitalist Progress Note ---
Date of Service September 03, 2018 Assessment & Plan (1) Post-op bleeding: - S/p hemorrhoidectomy on 08/29, resumed Xarelto on 08/31/18. - Pt. developed post op rectal bleeding on 09/02/18, was admitted for hemostasis. - Bleeding now improved, has some noted with BMs. - Discussed with Dr. Mancera, will plan to hold Xarelto until follow up with surgery in outpatient clinic. - Linch as needed for rectal pain. (2) Paroxysmal atrial fibrillation: - H/o PAF initially diagnosed ~May 2018; had Chads-Vasc score 1 at that time but elected to use anticoagulation therapy. - Resumed Xarelto on 08/31/18, now on hold due to post op bleeding. - In A. Fib at admission then converted to NSR; now converted back to A. fib rate controlled this morning. - Continue Metoprolol as prescribed. - Hold Xarelto until f/u with outpatient surgeon as noted above. - Has f/u with cardiology scheduled on 09/14/18. (3) Hyperlipidemia: - Continue Gemfibrozil as prescribed. (4) Anemia: - Hemoglobin decreased to 12.8, likely related to post op bleeding. (5) DVT prophylaxis: - Holding due to acute rectal bleeding. Dispo: Pt is medically stable for discharge to home pending approval by Dr. Mancera; will need to hold anticoagulation and f/u with surgery. Also has appt with cardiology in near future. Supervising Physician Co-Signing Physician Notes Attending Attestation - Chart reviewed in detail, and care plan d/w YUNIOR Cade. I agree w/ the doll components of her documentation. 63yo male with PAF on xarelto who recently had hemorrhoidectomy but developed post-op bleeding from the rectum, likely exacerbated by his anticoagulation. Xarelto NOW ON HOLD. H/H stable and vitals stable. Gen surg to d/c home today - agree with such, he is medically stable and appropriate for discharge. Agree with HOLDING THE XARELTO until seen by gen surg in clinic. Khurram Villanueva MD Subjective Pt is doing well today. Is having mild bleeding with BMs but no significant bleeding noted throughout day. Discussed case with Dr. Mancera, plan to hold Xarelto until follow up in outpatient clinic. Review of Systems All systems reviewed & are unremarkable except as noted in HPI & below Constitutional: no fever, no chills, no fatigue and no weakness Respiratory: no cough and no dyspnea Cardiovascular: no chest pain, no palpitations and no edema Gastrointestinal: no abdominal pain, no nausea, no vomiting, no constipation and no diarrhea/loose stools Genitourinary (Male): no difficulty urinating and no hematuria Musculoskeletal: no joint pain Allergy / Immunological: no rash Physical Exam Vital Signs (Past 24 Hours): Last Vital Signs Temp 37.2 C 09/03/18 11:48 Pulse 57 L 09/03/18 11:48 Resp 18 09/03/18 11:48 BP 110/69 09/03/18 11:48 Pulse Ox 95 09/03/18 11:48 Physical Exam: General: Resting comfortably in no apparent distress; A&OX3 HEENT: NC/AT; PERRLA with EOMI; [employer] conjunctiva, MMM. Neck: Supple and nontender Cardiac: irregular Lungs: CTA bilaterally Abdomen: Bowel normoactive X 4; Nontender to palpation Rectal: Did not complete on exam. Extremities: Warm. No edema present Neuro: No focal weakness Skin: No rash Results & Data Laboratory Results 09/03/18 09/03/18 09/03/18 Range/Units 05:56 05:55 00:50 WBC 9.34 (4.8-10.8) K/uL RBC 3.90 L (4.7-6.1) M/uL Hgb 12.8 L (14.0-18.0) g/dL POC Hgb (14.0-18.0) g/dl Hct 38.4 L (42-52) % POC Hct (42-52) % MCV 98.5 (80-100) fL MCH 32.8 (25-34) pg MCHC 33.3 (32-36) g/dL RDW Std Deviation 47.6 H (36.4-46.3) fL RDW Coeff of Chiquita 13.3 (11.5-14.5) % Plt Count 199 (130-400) K/uL MPV 11.0 H (7.4-10.4) fL Immature Gran % (Auto) % Neut % (Auto) % Lymph % (Auto) % [place] % (Auto) % Eos % (Auto) % Baso % (Auto) % Immature Gran # (Auto) (0.00-0.02) K/uL Neut # (Auto) (1.4-6.5) K/uL Lymph # (Auto) (1.2-3.4) K/uL [place] # (Auto) (0.11-0.59) K/uL Eos # (Auto) (0-0.5) K/uL Baso # (Auto) (0-0.2) K/uL PT (9.0-12.0) Seconds INR (0.9-1.1) APTT (21.0-31.0) Seconds PTT Ratio POC Sodium (135-144) mEq/L Sodium 138 (136-145) mmol/L POC Potassium (3.3-5.0) mEq/L Potassium 4.0 (3.5-5.1) mmol/L POC Chloride (101-112) mEq/L Chloride 101 (98-107) mmol/L Carbon Dioxide 28 (21-32) mmol/L POC Total CO2 (24-31) mEq/l Anion Gap 9.0 (3-11) POC Anion Gap (16-25) mmol/L POC BUN (7-18) mg/dl BUN 13 (7-18) mg/dl Creatinine 1.06 (0.6-1.4) mg/dl POC Creatinine (0.6-1.3) mg/dl Est Cr Clr Drug Dosing 79.4 ml/min Est GFR ( Amer) 85.5 Est GFR (Non-Af Amer) 73.8 BUN/Creatinine Ratio 12.4 (10-20) Glucose 103 H (70-99) mg/dl POC Glucose (other) (70-99) mg/dl Calcium 8.8 (8.5-10.1) mg/dl POC Ioniz Calcium Niranjan (1.12-1.32) mmol/l Phosphorus 3.6 (2.5-4.9) mg/dl Total Bilirubin 0.6 (0.2-1) mg/dl AST 14 L (15-37) U/L ALT 15 (12-78) U/L Alkaline Phosphatase 89 (45-117) U/L Total Protein 7.1 (6.4-8.2) gm/dl Albumin 2.8 L (3.4-5.0) gm/dl Globulin 4.3 H (2.5-4.0) gm/dl Albumin/Globulin Ratio 0.6 L (0.9-2) Lipase (73-393) U/L Urine Color Yellow Urine Appearance Clear (Clear) Urine pH 5.0 (4.5-7.5) Ur Specific [place] 1.022 (1.000-1.030) Urine Protein Negative (Negative) Urine Glucose (UA) Negative (Negative) Urine Ketones Negative (Negative) Urine Blood Negative (Negative) Urine Nitrite Negative (Negative) Urine Bilirubin Negative (Negative) Urine Urobilinogen Negative (Negative) Ur Leukocyte Esterase Negative (Negative) Hepatitis C Ab Screen (Neg) Blood Type Antibody Screen 09/02/18 09/02/18 09/02/18 Range/Units 19:59 19:59 16:59 WBC 9.21 (4.8-10.8) K/uL RBC 4.03 L (4.7-6.1) M/uL Hgb 13.5 L (14.0-18.0) g/dL POC Hgb 13.6 L (14.0-18.0) g/dl Hct 39.5 L (42-52) % POC Hct 40 L (42-52) % MCV 98.0 (80-100) fL MCH 33.5 (25-34) pg MCHC 34.2 (32-36) g/dL RDW Std Deviation 47.8 H (36.4-46.3) fL RDW Coeff of Chiquita 13.2 (11.5-14.5) % Plt Count 194 (130-400) K/uL MPV 10.6 H (7.4-10.4) fL Immature Gran % (Auto) 0.2 % Neut % (Auto) 71.4 % Lymph % (Auto) 18.3 % [place] % (Auto) 7.9 % Eos % (Auto) 2.0 % Baso % (Auto) 0.2 % Immature Gran # (Auto) 0.02 (0.00-0.02) K/uL Neut # (Auto) 6.57 H (1.4-6.5) K/uL Lymph # (Auto) 1.69 (1.2-3.4) K/uL [place] # (Auto) 0.73 H (0.11-0.59) K/uL Eos # (Auto) 0.18 (0-0.5) K/uL Baso # (Auto) 0.02 (0-0.2) K/uL PT (9.0-12.0) Seconds INR (0.9-1.1) APTT (21.0-31.0) Seconds PTT Ratio POC Sodium 137 (135-144) mEq/L Sodium (136-145) mmol/L POC Potassium 4.7 (3.3-5.0) mEq/L Potassium (3.5-5.1) mmol/L POC Chloride 102 (101-112) mEq/L Chloride (98-107) mmol/L Carbon Dioxide (21-32) mmol/L POC Total CO2 27 (24-31) mEq/l Anion Gap (3-11) POC Anion Gap 13.0 L (16-25) mmol/L POC BUN 23 H (7-18) mg/dl BUN (7-18) mg/dl Creatinine (0.6-1.4) mg/dl POC Creatinine 1.1 (0.6-1.3) mg/dl Est Cr Clr Drug Dosing ml/min Est GFR ( Amer) Est GFR (Non-Af Amer) BUN/Creatinine Ratio (10-20) Glucose (70-99) mg/dl POC Glucose (other) 145 H (70-99) mg/dl Calcium (8.5-10.1) mg/dl POC Ioniz Calcium Niranjan 1.06 L (1.12-1.32) mmol/l Phosphorus (2.5-4.9) mg/dl Total Bilirubin (0.2-1) mg/dl AST (15-37) U/L ALT (12-78) U/L Alkaline Phosphatase (45-117) U/L Total Protein (6.4-8.2) gm/dl Albumin (3.4-5.0) gm/dl Globulin (2.5-4.0) gm/dl Albumin/Globulin Ratio (0.9-2) Lipase (73-393) U/L Urine Color Urine Appearance (Clear) Urine pH (4.5-7.5) Ur Specific [place] (1.000-1.030) Urine Protein (Negative) Urine Glucose (UA) (Negative) Urine Ketones (Negative) Urine Blood (Negative) Urine Nitrite (Negative) Urine Bilirubin (Negative) Urine Urobilinogen (Negative) Ur Leukocyte Esterase (Negative) Hepatitis C Ab Screen Neg (Neg) Blood Type Antibody Screen 09/02/18 09/02/18 09/02/18 Range/Units 16:52 16:49 16:49 WBC (4.8-10.8) K/uL RBC (4.7-6.1) M/uL Hgb (14.0-18.0) g/dL POC Hgb (14.0-18.0) g/dl Hct (42-52) % POC Hct (42-52) % MCV (80-100) fL MCH (25-34) pg MCHC (32-36) g/dL RDW Std Deviation (36.4-46.3) fL RDW Coeff of Chiquita (11.5-14.5) % Plt Count (130-400) K/uL MPV (7.4-10.4) fL Immature Gran % (Auto) % Neut % (Auto) % Lymph % (Auto) % [place] % (Auto) % Eos % (Auto) % Baso % (Auto) % Immature Gran # (Auto) (0.00-0.02) K/uL Neut # (Auto) (1.4-6.5) K/uL Lymph # (Auto) (1.2-3.4) K/uL [place] # (Auto) (0.11-0.59) K/uL Eos # (Auto) (0-0.5) K/uL Baso # (Auto) (0-0.2) K/uL PT 11.4 (9.0-12.0) Seconds INR 1.1 (0.9-1.1) APTT 31.0 (21.0-31.0) Seconds PTT Ratio 1.1 POC Sodium (135-144) mEq/L Sodium 137 (136-145) mmol/L POC Potassium (3.3-5.0) mEq/L Potassium 3.9 (3.5-5.1) mmol/L POC Chloride (101-112) mEq/L Chloride 103 (98-107) mmol/L Carbon Dioxide 27 (21-32) mmol/L POC Total CO2 (24-31) mEq/l Anion Gap 7.0 (3-11) POC Anion Gap (16-25) mmol/L POC BUN (7-18) mg/dl BUN 19 H (7-18) mg/dl Creatinine 1.30 (0.6-1.4) mg/dl POC Creatinine (0.6-1.3) mg/dl Est Cr Clr Drug Dosing 66.4 ml/min Est GFR ( Amer) 66.8 Est GFR (Non-Af Amer) 57.7 BUN/Creatinine Ratio 14.5 (10-20) Glucose 145 H (70-99) mg/dl POC Glucose (other) (70-99) mg/dl Calcium 8.5 (8.5-10.1) mg/dl POC Ioniz Calcium Niranjan (1.12-1.32) mmol/l Phosphorus (2.5-4.9) mg/dl Total Bilirubin 0.6 (0.2-1) mg/dl AST 13 L (15-37) U/L ALT 15 (12-78) U/L Alkaline Phosphatase 97 (45-117) U/L Total Protein 7.7 (6.4-8.2) gm/dl Albumin 3.1 L (3.4-5.0) gm/dl Globulin 4.6 H (2.5-4.0) gm/dl Albumin/Globulin Ratio 0.7 L (0.9-2) Lipase 84 (73-393) U/L Urine Color Urine Appearance (Clear) Urine pH (4.5-7.5) Ur Specific [place] (1.000-1.030) Urine Protein (Negative) Urine Glucose (UA) (Negative) Urine Ketones (Negative) Urine Blood (Negative) Urine Nitrite (Negative) Urine Bilirubin (Negative) Urine Urobilinogen (Negative) Ur Leukocyte Esterase (Negative) Hepatitis C Ab Screen (Neg) Blood Type O Positive Antibody Screen NEGATIVE 09/02/18 Range/Units 16:49 WBC 9.54 (4.8-10.8) K/uL RBC 4.21 L (4.7-6.1) M/uL Hgb 13.9 L (14.0-18.0) g/dL POC Hgb (14.0-18.0) g/dl Hct 40.7 L (42-52) % POC Hct (42-52) % MCV 96.7 (80-100) fL MCH 33.0 (25-34) pg MCHC 34.2 (32-36) g/dL RDW Std Deviation 46.7 H (36.4-46.3) fL RDW Coeff of Chiquita 13.2 (11.5-14.5) % Plt Count 203 (130-400) K/uL MPV 10.9 H (7.4-10.4) fL Immature Gran % (Auto) 0.2 % Neut % (Auto) 78.2 % Lymph % (Auto) 11.8 % [place] % (Auto) 8.2 % Eos % (Auto) 1.4 % Baso % (Auto) 0.2 % Immature Gran # (Auto) 0.02 (0.00-0.02) K/uL Neut # (Auto) 7.46 H (1.4-6.5) K/uL Lymph # (Auto) 1.13 L (1.2-3.4) K/uL [place] # (Auto) 0.78 H (0.11-0.59) K/uL Eos # (Auto) 0.13 (0-0.5) K/uL Baso # (Auto) 0.02 (0-0.2) K/uL PT (9.0-12.0) Seconds INR (0.9-1.1) APTT (21.0-31.0) Seconds PTT Ratio POC Sodium (135-144) mEq/L Sodium (136-145) mmol/L POC Potassium (3.3-5.0) mEq/L Potassium (3.5-5.1) mmol/L POC Chloride (101-112) mEq/L Chloride (98-107) mmol/L Carbon Dioxide (21-32) mmol/L POC Total CO2 (24-31) mEq/l Anion Gap (3-11) POC Anion Gap (16-25) mmol/L POC BUN (7-18) mg/dl BUN (7-18) mg/dl Creatinine (0.6-1.4) mg/dl POC Creatinine (0.6-1.3) mg/dl Est Cr Clr Drug Dosing ml/min Est GFR ( Amer) Est GFR (Non-Af Amer) BUN/Creatinine Ratio (10-20) Glucose (70-99) mg/dl POC Glucose (other) (70-99) mg/dl Calcium (8.5-10.1) mg/dl POC Ioniz Calcium Niranjan (1.12-1.32) mmol/l Phosphorus (2.5-4.9) mg/dl Total Bilirubin (0.2-1) mg/dl AST (15-37) U/L ALT (12-78) U/L Alkaline Phosphatase (45-117) U/L Total Protein (6.4-8.2) gm/dl Albumin (3.4-5.0) gm/dl Globulin (2.5-4.0) gm/dl Albumin/Globulin Ratio (0.9-2) Lipase (73-393) U/L Urine Color Urine Appearance (Clear) Urine pH (4.5-7.5) Ur Specific [place] (1.000-1.030) Urine Protein (Negative) Urine Glucose (UA) (Negative) Urine Ketones (Negative) Urine Blood (Negative) Urine Nitrite (Negative) Urine Bilirubin (Negative) Urine Urobilinogen (Negative) Ur Leukocyte Esterase (Negative) Hepatitis C Ab Screen (Neg) Blood Type Antibody Screen (1) Post-op bleeding Procedure type: digestive system Surgical complication system/body Area: digestive system Qualified Code(s): K91.840 - Postprocedural hemorrhage of a digestive system organ or structure following a digestive system procedure
--- NOTE | 2018-09-04 08:16 | Discharge Summary ---
Date of Service September 11, 2018 Admission HPI Per Admitting Provider recent hemorrhoidectomy- 4 days ago- began Xarelto 2 days ago last dose last pm- began with rectal bleeding this am BRBPR- Dr Shah placed Transaxamic pad he saw clot- no active bleeding Dr Small told me Xarelto should be out of his system (mostly) h/o afib Discharge Data Consultations 09/02/18 18:40 Consult Hospitalist Stat ED Decision to Admit Stat 09/02/18 19:34 Consult Hospitalist Stat
--- NOTE | 2018-09-04 08:16 | Discharge Summary ---
Date of Service September 05, 2018 Admission HPI Per Admitting Provider recent hemorrhoidectomy- 4 days ago- began Xarelto 2 days ago last dose last pm- began with rectal bleeding this am BRBPR- Dr Shah placed Transaxamic pad he saw clot- no active bleeding Dr Small told me Xarelto should be out of his system (mostly) h/o afib Discharge Data Allergies Allergy/AdvReac Type Severity Reaction Status Date / Time pollen extracts Allergy Unknown SNEEZING, Verified 09/02/18 16:40 RUNNY NOSE Dust Allergy Unknown SNEEZING, Uncoded 09/02/18 16:40 RUNNY NOSE Consultations 09/02/18 18:40 Consult Hospitalist Stat ED Decision to Admit Stat 09/02/18 19:34 Consult Hospitalist Stat Hospital Course (1) Post-op bleeding: monitor for bleeding, adv diet discuss with Dr Mancera and med team plan for anticoagulant Discharge Plan Discharge Items Patient Disposition: Home - Self-Care Reason For Visit: BLEEDING HEMORRHOIDS Discharge Diagnosis: hemorrhoid bleeding Discharge Goals: Improve function Activity: Resume your previous activity Bathing: No limitations Driving/Machine Use: No limitations Non-emergency contact: Surgeon Call non-emergency contact if: you have any medication questions, your pain is worsening, you have a fever and your temperature is above 101.5 Follow-up/Referrals: Umang Mancera DO, FACS [Physician] - (Next week, call if you have any questions or need to schedule) Jacob Singh MD [Primary Care Provider] - Diet: Regular Addtl Provider Instructions: Prescriptions: New oxycodone-acetaminophen [Percocet] 5-325 mg tablet 1 - 2 tab PO Q4H PRN (Reason: pain) Qty: 20 RF: 0 Continued rizatriptan [Maxalt] 10 mg Tablet 10 mg PO DAILY PRN (Reason: Migraine Headache) RF: 0 multivitamin [Multiple Vitamins] Tablet 1 tab PO DAILY RF: 0 gemfibrozil 600 mg Tablet 300 tab PO BID RF: 0 metoprolol tartrate 25 mg Tablet 37.5 mg PO BID RF: 0 calcium citrate-vitamin D3 [Citracal Regular] 250 mg calcium- 200 unit Tablet 1 tab PO DAILY RF: 0 Move Free Joint Health 750 mg-100 mg- 1.65 mg-108 mg Tablet 1 tab PO DAILY RF: 0 Discontinued Xarelto 20 mg Tablet 20 mg PO PM RF: 0 Stand-Alone Forms: [facility] Discharge Orders: Discharge Order (Routine); Ordered 09/03/18 Ordered By: Joshua Damon Jr Admission Data Admit Date/Time: 09/02/18 18:50 Attending Provider: Javed Esposito Admit Provider: Javed Esposito Primary Care Provider: Jacob Singh Other Providers: Coleman Dacosta Service: Telemetry Medical Other Interventions: Discharge Summary Assessment (RN) Last Done: 09/03/18 17:16 DC Date/Time DO NOT enter until pt leaves facility: 09/03/18 17:51
--- NOTE | 2018-09-05 15:26 | Discharge Summary ---
Date of Service September 11, 2018 Discharge Data Consultations 09/02/18 18:40 Consult Hospitalist Stat ED Decision to Admit Stat 09/02/18 19:34 Consult Hospitalist Stat
--- NOTE | 2018-09-06 13:01 | Discharge Summary ---
PRIMARY DISCHARGE DIAGNOSES: 1. Rectal bleeding, status post hemorrhoidectomy. 2. Anticoagulated for history of paroxysmal atrial fibrillation. CONSULTATIONS: [facility] hospitalist. HOSPITAL COURSE: The patient is a 63-year-old male who presented to the Emergency Department complaining of rectal bleeding 4 days status post hemorrhoidectomy and 2 days after resuming Xarelto. Tranexamic acid pad was applied while in the ED. This seemed to alleviate his bleeding. He was admitted to the surgical service for overnight observation. He had no further rectal bleeding. He did have a small amount of blood mixed with bowel movement. His Xarelto had been held. His MAHENDRA score is 1. He was tolerating an advancing diet, had no further bleeding, was stable for discharge later in the afternoon. DISCHARGE INSTRUCTIONS: Discharge home. Follow up with Dr. Mancera in 1 week. Also has follow up with cardiology in 2 weeks. DISCHARGE MEDICATIONS: Continue to hold Xarelto. He was given additional Percocet 1-2 tablets every 4 hours as needed, 20 tablets. Resume all other home medications, calcium supplements, gemfibrozil 300 mg b.i.d., metoprolol 37.5 mg b.i.d., daily multivitamin, and Maxalt 10 mg daily.
== END 2018-09-03 17:51 | disposition home or self-care (01) | DRG 920 ==
LOC: ED 16:21 → 2N 18:50